=== PATIENT | female | born 1995 | race Hispanic/Latino ===

== ENCOUNTER 2018-08-09 02:56 | Emergency (ER) | payer MEDICAID, OTHER ==
[2018-08-09 03:26] LABS: BASOPHILS % (AUTO) 0.2 % (0.0-5.0); EOSINOPHILS % (AUTO) 0.5 % (0.0-8.0); HEMATOCRIT 43.4 % (36-48); LYMPHOCYTES % (AUTO) 43.4 % (21.0-51.0); MEAN CORPUSCULAR HGB CONC 32.9 g/dL (32.0-36.0); MEAN CORPUSCULAR VOLUME 94.3 fL (80-100); MONOCYTES % (AUTO) 6.6 % (3.0-13.0); NEUTROPHILS % (AUTO) 49.3 % (40.0-77.0); PLATELET COUNT (AUTO) 269 K/uL (130-400); RED BLOOD CELL COUNT(AUTO) 4.61 MIL/uL (4.00-5.50); RED CELL DISTRIBUTION WIDTH 12.3 % (11.0-15.5); WHITE BLOOD COUNT (AUTO) 11.7 K/uL (4.8-10.8)
[2018-08-09 03:28] LABS: APPEARANCE,URINE Clear (CLEAR); BILIRUBIN,URINE Negative (NEGATIVE); COLOR,URINE Yellow (YELLOW); GLUCOSE, URINE (UA) Negative (NEGATIVE); KETONES,URINE Negative (NEGATIVE); LEUKOCYTE ESTERASE ,URINE Trace (NEGATIVE); NITRATE,URINE Negative (NEGATIVE); OCCULT BLOOD,URINE Negative (NEGATIVE); PROTEIN,URINE Negative (NEGATIVE); UROBILINOGEN,URINE 0.2 mg/dL (0.2-1.0)
[2018-08-09 03:30] LABS: HCG,QUAL RESULT NEGATIVE (NEGATIVE)
[2018-08-09 03:37] LABS: AMPHET/METH SCREEN,URINE NEGATIVE (NEGATIVE); BARBITURATE SCREEN, URINE NEGATIVE (NEGATIVE); BENZODIAZEPINES SCREEN,URINE NEGATIVE (NEGATIVE); CANNABINOID SCREEN,URINE POSITIVE (NEGATIVE); COCAINE SCREEN,URINE NEGATIVE (NEGATIVE); CREATININE 0.8 mg/dL (0.5-1.5); OPIATE SCREEN,URINE NEGATIVE (NEGATIVE); PHENCYCLIDINE SCREEN,URINE NEGATIVE (NEGATIVE); POTASSIUM 3.9 mmol/L (3.5-5.1)
[2018-08-09 03:43] LABS: ALBUMIN 3.7 g/dL (3.5-5.0); BILIRUBIN,TOTAL 0.2 mg/dL (0.2-1.0); TOTAL PROTEIN, SERUM 7.8 g/dL (6.0-8.3)
[2018-08-09 03:53] LABS: BACTERIA,URINE Rare /HPF (None Seen); RBC,URINE 0-1 /HPF (0-1); WBC,URINE 0-1 /HPF (0-1)
== END 2018-08-09 06:25 | disposition home or self-care (01) ==
LOC: EDH 02:56
DX: F12.10 Cannabis abuse, uncomplicated (principal); R53.1 Weakness
CPT/HCPCS: 36415; 71045; 80053; 80305; 81001; 81025; 82550; 83690; 84484; 85025; 93005

== ENCOUNTER 2019-10-08 09:28 | Emergency (ER) | payer OTHER ==
[2019-10-08] MEDS ORDERED: MECLIZINE HCL 25 MG TABLET ONE (09:53)
== END 2019-10-08 11:10 | disposition home or self-care (01) ==
LOC: EDH 09:28
DX: H81.10 Benign paroxysmal vertigo, unspecified ear (principal); Z72.0 Tobacco use
CPT/HCPCS: 99282

== ENCOUNTER 2019-12-22 01:56 | Emergency (ER) | payer OTHER ==
[2019-12-22 02:56] LABS: BASOPHILS % (AUTO) 0.2 % (0.0-5.0); EOSINOPHILS % (AUTO) 0.3 % (0.0-8.0); HEMATOCRIT 42.8 % (36-48); LYMPHOCYTES % (AUTO) 26.1 % (21.0-51.0); MEAN CORPUSCULAR HEMOGLOBIN 31.8 pg (27.0-33.0); MEAN CORPUSCULAR HGB CONC 32.7 g/dL (32.0-36.0); MEAN CORPUSCULAR VOLUME 97.3 fL (79-99); MONOCYTES % (AUTO) 7.1 % (3.0-13.0); NEUTROPHILS % (AUTO) 66.1 % (40.0-77.0); PLATELET COUNT (AUTO) 219 K/uL (130-400); RED CELL DISTRIBUTION WIDTH 11.3 % (11.0-15.5); WHITE BLOOD COUNT (AUTO) 9.4 K/uL (4.8-10.8)
[2019-12-22 03:03] LABS: CREATININE 0.6 mg/dL (0.5-1.5); POTASSIUM 4.1 mmol/L (3.5-5.1)
[2019-12-22 03:07] LABS: ALBUMIN 3.5 g/dL (3.5-5.0); BILIRUBIN,TOTAL 0.5 mg/dL (0.2-1.0); TOTAL PROTEIN, SERUM 7.5 g/dL (6.0-8.3)
[2019-12-22 03:10] LABS: APPEARANCE,URINE Clear (CLEAR); BILIRUBIN,URINE Negative (NEGATIVE); COLOR,URINE Yellow (YELLOW); GLUCOSE, URINE (UA) Negative (NEGATIVE); KETONES,URINE Negative (NEGATIVE); LEUKOCYTE ESTERASE ,URINE Negative (NEGATIVE); NITRATE,URINE Negative (NEGATIVE); OCCULT BLOOD,URINE Negative (NEGATIVE); PH,URINE 5.5 (5.0-8.0); PROTEIN,URINE Negative (NEGATIVE); UROBILINOGEN,URINE 0.2 mg/dL (0.2-1.0)
[2019-12-22 03:17] LABS: AMPHET/METH SCREEN,URINE NEGATIVE (NEGATIVE); BARBITURATE SCREEN, URINE NEGATIVE (NEGATIVE); BENZODIAZEPINES SCREEN,URINE NEGATIVE (NEGATIVE); CANNABINOID SCREEN,URINE POSITIVE (NEGATIVE); COCAINE SCREEN,URINE NEGATIVE (NEGATIVE); OPIATE SCREEN,URINE NEGATIVE (NEGATIVE); PHENCYCLIDINE SCREEN,URINE NEGATIVE (NEGATIVE)
[2019-12-22 03:20] LABS: HCG,QUAL RESULT NEGATIVE (NEGATIVE)
== END 2019-12-22 04:12 | disposition home or self-care (01) ==
LOC: EDH 01:56
DX: F41.1 Generalized anxiety disorder (principal); R00.2 Palpitations; R06.02 Shortness of breath
CPT/HCPCS: 36415; 80053; 80305; 81003; 81025; 84484; 85025; 93005

== ENCOUNTER 2020-01-06 10:14 | Emergency (ER) | payer OTHER | END 2020-01-06 10:51 | disposition home or self-care (01) | LOC: EDH 10:14 | DX: F41.1 Generalized anxiety disorder (principal); Z87.891 Personal history of nicotine dependence | CPT/HCPCS: 99281 ==

== ENCOUNTER 2021-12-04 19:46 | Emergency (ER) | payer OTHER ==
[~2021-12-04] VITALS: Ht 160 cm; Wt 86.2 kg
[2021-12-04 20:33] LABS: BASOPHILS % (AUTO) 0.2 % (0.0-5.0); EOSINOPHILS % (AUTO) 0.5 % (0.0-8.0); HEMATOCRIT 37.1 % (36-48); LYMPHOCYTES % (AUTO) 30.8 % (21.0-51.0); MEAN CORPUSCULAR HEMOGLOBIN 31.2 pg (27.0-33.0); MEAN CORPUSCULAR HGB CONC 33.4 g/dL (32.0-36.0); MEAN CORPUSCULAR VOLUME 93.2 fL (79-99); MONOCYTES % (AUTO) 7.2 % (3.0-13.0); PLATELET COUNT (AUTO) 264 K/uL (130-400); RED BLOOD CELL COUNT(AUTO) 3.98 MIL/uL (4.00-5.50); RED CELL DISTRIBUTION WIDTH 11.4 % (11.0-15.5); WHITE BLOOD COUNT (AUTO) 11.5 K/uL (4.8-10.8)
[2021-12-04 21:57] LABS: APPEARANCE,URINE Clear (CLEAR); BILIRUBIN,URINE Negative (NEGATIVE); COLOR,URINE Yellow (YELLOW); GLUCOSE, URINE (UA) Negative (NEGATIVE); KETONES,URINE Negative (NEGATIVE); LEUKOCYTE ESTERASE ,URINE Moderate (NEGATIVE); NITRATE,URINE Negative (NEGATIVE); OCCULT BLOOD,URINE Negative (NEGATIVE); PROTEIN,URINE Negative (NEGATIVE)
[2021-12-04 22:08] LABS: BACTERIA,URINE Few /HPF (None Seen); RBC,URINE 0-1 /HPF (0-1); SQUAMOUS EPITHELIAL CELL,UR Few /HPF (0-2)
[2021-12-04 22:09] LABS: MUCUS,URINE Rare LPF (None Seen)
[2021-12-04] MEDS ORDERED: CEPH500B PO (22:58)
[2021-12-04] MEDS ORDERED: PREN-154 PO (22:58)
[2021-12-04] MEDS ORDERED: CEPHALEXIN 500 MG CAPSULE PO ONE (23:00)
[2021-12-04 23:15] VITALS: BP 136/87
== END 2021-12-04 23:16 | disposition home or self-care (01) ==
LOC: EDH 19:46
DX: O20.0 Threatened abortion (principal); O23.41 Unspecified infection of urinary tract in pregnancy, first trimester; Z3A.01 Less than 8 weeks gestation of pregnancy
CPT/HCPCS: 36415; 81001; 84702; 84703; 85025; 86850; 86900; 86901; 87088

== ENCOUNTER 2024-08-16 13:46 | Emergency (ER) | payer MEDICAID ==
[~2024-08-16] VITALS: Ht 160 cm; Wt 95.3 kg
[~2024-08-16 13:46] MED LIST: CEPH500B PO; PREN-154 PO
[2024-08-16 15:14] VITALS: BP 120/85; PULSE 95; RESP 16; TEMP 99.1; O2SAT 98
[2024-08-16] MEDS ORDERED: CLIN-141 PO (15:31)
[2024-08-16] MEDS ORDERED: IBUP-2070 PO (15:31)
== END 2024-08-16 16:08 | disposition home or self-care (01) ==
LOC: EDH 13:46
DX: K08.89 Other specified disorders of teeth and supporting structures (principal); R51.9 Headache, unspecified

== ENCOUNTER 2024-10-31 17:32 | Emergency (ER) | payer MEDICAID ==
[~2024-10-31] VITALS: Ht 162.6 cm; Wt 97.5 kg
[~2024-10-31 17:32] MED LIST changes: +CLIN-141 PO; +IBUP-2070 PO
[2024-10-31 17:57] LABS: APPEARANCE,URINE CLEAR (CLEAR); BILIRUBIN,URINE NEGATIVE (NEGATIVE); COLOR,URINE LIGHT-YELLOW (YELLOW); GLUCOSE, URINE (UA) NEGATIVE (NEGATIVE); KETONES,URINE NEGATIVE (NEGATIVE); LEUKOCYTE ESTERASE ,URINE 75 Leu/uL (NEGATIVE); NITRATE,URINE NEGATIVE (NEGATIVE); OCCULT BLOOD,URINE NEGATIVE (NEGATIVE); PROTEIN,URINE NEGATIVE (NEGATIVE); UROBILINOGEN,URINE 0.2 mg/dL (0.2-1.0)
--- NOTE | 2024-10-31 17:57 | ERN ---
General Chief Complaint: Low Back Pain/Injury Stated Complaint: LOWER BACK PAIN Time Seen by MD: 17:34 Time Seen by Midlevel: 17:34 Source: patient History of Present Illness Initial Comments Patient is a 29-year-old female with no significant past medical history presents to the emergency department with multiple complaints. Her primary concern is that she was having low back pain has been ongoing for the last week. She denies any direct injury to her back. Denies lifting anything heavy. She states the pain is worse with certain movements. Denies any dysuria, hematuria, fever, chills, nausea, vomiting, or any other symptoms at this time. The 2nd complaint she was coming in with is a sore throat that has been ongoing for the last month. She states she works at a [employer] center and is constantly speaking so she believes that might be the reason for the itchiness in the back of her throat. Denies taking any medications. Denies seeing a primary care doctor for this issue. Denies any past medical/surgical history. Allergies: Coded Allergies: No Known Drug Allergies (Unverified Allergy, Unknown, 03/06/15) Home Meds Active Scripts Clindamycin HCl (Clindamycin HCl) 300 Mg Capsule, 300 MG PO TID for 7 Days, #21 CAP Prov:SHI VALLECILLO MD 08/16/24 Ibuprofen (Ibuprofen) 600 Mg Tablet, 600 MG PO Q8HPRN PRN for PAIN for 3 Days, #10 TAB Prov:SHI VALLECILLO MD 08/16/24 Vits #93/Iron Fum/FA ( Formula Tablet) 1 Each Tablet, 1 EACH PO DAILYBKFST for 30 Days, #30 TAB Prov:FREDY GLASS NP 12/04/21 Cephalexin Monohydrate (Keflex) 500 Mg Cap, 500 MG PO TID for 10 Days, #30 CAP Prov:FREDY GLASS CLAM TREADER 12/04/21 Past Medical History Past Medical History: No Pertinent History Past Surgical History: Surgical History Other: C section , D and C Female( History) LMP: Sep 27, 2024 ROS Dictation CONSTITUTIONAL: Negative except for HPI HEAD/FACE: Negative except for HPI EENT: Negative except for HPI RESPIRATORY: Negative except for HPI GASTROINTESTINAL/ABDOMINAL: Negative except for HPI GENITOURINARY: Negative except for HPI MUSCULOSKELETAL: Negative except for HPI INTEGUMENTARY: Negative except for HPI NEUROLOGICAL/PSYCH: Negative except for HPI HEMATOLOGIC/LYMPHATIC: Negative except for HPI All Systems Negative, Except as noted above. 13 point review of systems assessed and all negative except for above. Physical Exam Physical Exam Dictation Vital Signs reviewed General Appearance: Alert, oriented x 3, no acute distress, well developed, nourished. Head and Face: non-traumatic. Eyes: PERRL, pink conjunctivas, eyelid no trauma, anterior chamber with arcus senilis. Ears: Pinnas intact and no signs of trauma or erythema ear canals clear and no discharge TM no erythema Nose: No discharge, no bleeding. Oropharynx: Mouth normal, tongue pink, pharynx clear,no erythema, tonsils no exudates, no abscesses noted, mucous membrane moist Neck: Supple, non-tender, no thyromegaly, no masses, no JVD, no bruits Breast:Deferred Chest:No tenderness, no crepitus, no paradoxical movement, no retractions Lungs:Clear, well-ventilated, symmetric, no rales, no wheezing, no rhonchi, no stridor, good breath sounds bilaterally Heart: Regular rate, regular rhythm, no murmur, no gallops Vascular: no peripheral edema, Abdomen: Soft, positive bowel sounds, nondistended, no guarding, nontender, no rebound, no masses no hepatomegaly, no splenomegaly, no Beard's sign, no hernias. Rectal: Deferred Genital: Deferred Neurological: Normal speech, motor function intact, sensory function intact Musculoskeletal: Neck nontender, full range of motion, back nontender, full rang e of motion, Extremities: nontender, full range of motion Skin: Color pink, dry, no turgor, no rash, no lacerations, no abrasions, no contusions. Lymphatic: Deferred Results Laboratory and Microbiology Lab and Micro Result Laboratory Tests Test 10/31/24 17:40 Urine Color LIGHT-YELLOW (YELLOW) Urine Appearance CLEAR (CLEAR) Urine pH 6.0 (5.0-8.0) Urine Specific Patterson 1.025 (1.001-1.031) Urine Protein NEGATIVE mg/dL (NEGATIVE) Urine Glucose (UA) NEGATIVE mg/dL (NEGATIVE) Urine Ketones NEGATIVE mg/dL (NEGATIVE) Urine Occult Blood NEGATIVE (NEGATIVE) Urine Nitrate NEGATIVE (NEGATIVE) Urine Bilirubin NEGATIVE mg/dL (NEGATIVE) Urine Urobilinogen 0.2 mg/dL (0.2-1.0) Urine Leukocyte Esterase 75 Gil/uL (NEGATIVE) H Urine RBC 0-1 /HPF (0-1) Urine WBC 0-1 /HPF (0-1) Urine Squamous Epithelial Cells RARE /HPF (0-2) Urine Bacteria None /HPF (None Seen) Urine HCG, Qualitative NEGATIVE (NEGATIVE) SARS-CoV-2, RNA, NAAT NEGATIVE SARS CoV-2 Labs Reviewed?: Yes MDM MDM: Patient is a 29-year-old female with no significant past medical history presents to the emergency department with multiple complaints. Her primary concern is that she was having low back pain has been ongoing for the last week. She denies any direct injury to her back. Denies lifting anything heavy. She states the pain is worse with certain movements. Denies any dysuria, hematuria, fever, chills, nausea, vomiting, or any other symptoms at this time. The 2nd complaint she was coming in with is a sore throat that has been ongoing for the last month. She states she works at a [employer] and is constantly speaking so she believes that might be the reason for the itchiness in the back of her throat. Denies taking any medications. Denies seeing a primary care doctor for this issue. Denies any past medical/surgical history. Physical examination patient has no midline tenderness to her thoracolumbar area. She is ambulatory without assistance with a normal gait. There is some mild paraspinal muscle tenderness to the lumbar region. It appears the pain is musculoskeletal in nature since the pain is reproducible with movements. Initial vital signs are stable. Patient is nontoxic appearing. She is afebrile. Her ENT examination is remarkable for erythema to the posterior oropharynx. Uvula is midline. No signs of peritonsillar abscess. There was no tonsillar exudates. Patient was swabbed for flu a, flu B, COVID, and strep and has tested negative. Her urinalysis has some small amount of leuk esterase which appears to be the start of a urine infection. Patient was given Toradol and Norflex in the emergency department and will be discharged home with a prescription for Flexeril, Toradol, and Macrobid given that this may be the start of a UTI. Patient was advised to follow up with your PCP in 2-3 days for repeat evaluation. Return precautions discussed Differential diagnosis: Low back strain, urinary tract infection, There are no social concerns with this patient. Prescription drug management Prescriptions will include: Toradol and Flexeril Medical management and examination interpretation discussions were had by me with other qualified healthcare professionals as indicated for the patient's care. ED Course Orders Procedure Category Date Status Time Covid Rna Naat LAB 10/31/24 In Process 17:37 Influenza Type A & B, LAB 10/31/24 In Process Rapid 17:37 Rapid (Group A Strep) LAB 10/31/24 In Process 17:37 Urinalysis Profile LAB 10/31/24 Complete 17:37 ,Urine Test LAB 10/31/24 Complete 17:37 Culture Urine DELILAH 10/31/24 Logged 17:59 Orphenadrine Citrate PHA 10/31/24 Logged (Norflex) 18:30 Ketorolac PHA 10/31/24 Logged Tromethamine 30mg/Ml 18:30 Current Medications Medications (Trade) Dose Ordered Sig/Brittny Route PRN Reason Start Time Stop Time Status Last Admin Dose Admin Ketorolac Tromethamine (toRADol) 30 mg ONCE ONCE IM 10/31/24 18:30 10/31/24 18:31 UNV Orphenadrine Citrate (Norflex) 60 mg ONCE ONCE IM 10/31/24 18:30 10/31/24 18:31 UNV Vital Signs Date Time Temp Pulse Resp B/P (MAP) Pulse Ox O2 Delivery O2 Flow Rate FiO2 10/31/24 17:35 99.3 98 18 148/92 0 Room Air 0 DX & DISP Disposition: Discharge Departure Impression: Primary Impression: Low back strain Additional Impression: Cystitis Condition: Stable Scripts Cyclobenzaprine HCl (Flexeril) 10 Mg Tab 10 MG PO BID for muscle sstiffness for 5 Days, #10 TAB 0 Refills Prov: ROWENA OSWALD 10/31/24 Ketorolac Tromethamine (Ketorolac Tromethamine) 10 Mg Tablet 1 TAB PO TID for pain for 5 Days, #15 TAB 0 Refills Prov: ROWENA OSWALD 10/31/24 Nitrofurantoin/Nitrofuran Mac (Macrobid) 100 Mg Cap 1 CAP PO BID for 5 Days, #10 CAP 0 Refills Prov: ROWENA OSWALD 10/31/24 Additional Instructions: Your urinalysis shows what appears to be the start of a urine infection. I do not believe this is what is causing your low back pain. Your low back pain appears to be musculoskeletal in nature. I will start you on antibiotics for a presumed bladder infection. I will also send him home with a prescription for Toradol and Flexeril which should help with your low back pain. You have tested negative for COVID-19, influenza a, influenza B, and strep pharyngitis. You will need to follow up with your primary care doctor in 2-3 days for repeat evaluation. If you develop any new or worsening symptoms please report to the ER for further evaluation. Referrals: ANABELA OSWALD MD (PCP) Time of Disposition: 18:17 I have reviewed the case, and I agree with, Diagnosis and Plan I performed the substantive portion of the visit. I have reviewed and personally made and approve the management plan that is documented in the note by myself or the SONIYA. I acknowledge for responsibility for the patient's management plan. ROWENA OSWALD Oct 31, 2024 17:57
[2024-10-31 17:59] LABS: ADD UA MICROSCOPIC YES
[2024-10-31 18:01] LABS: MUCUS,URINE RARE LPF (None Seen); RBC,URINE 0-1 /HPF (0-1); SQUAMOUS EPITHELIAL CELL,UR RARE /HPF (0-2); WBC,URINE 0-1 /HPF (0-1)
[2024-10-31 18:07] LABS: HCG,QUALITATIVE URINE NEGATIVE (NEGATIVE)
[2024-10-31 18:13] LABS: SARS-CoV-2, RNA, NAAT NEGATIVE SARS CoV-2 (NEGATIVE)
[2024-10-31 18:17] LABS: RAPID GROUP A STREP negative (NEGATIVE)
[2024-10-31] MEDS ORDERED: MACR100 PO (18:21)
[2024-10-31] MEDS ORDERED: CYCL10TA16 PO (18:21)
[2024-10-31] MEDS ORDERED: KETO10TA2 PO (18:21)
[2024-10-31 18:27] LABS: INFLUENZA TYPE A Negative For Type A (NEGATIVE); INFLUENZA TYPE B Negative For Type B (NEGATIVE)
[2024-10-31 18:48] VITALS: BP 141/83; PULSE 95; RESP 18; TEMP 98.9; O2SAT 100
[2024-10-31] MEDS: ORPHENADRINE 60MG/2ML IM ONE (18:51)
[2024-10-31] MEDS: ketOROlac 30MG VIAL (30MG/ML) IM ONE (18:51)
== END 2024-10-31 19:02 | disposition home or self-care (01) ==
LOC: EDH 17:32
DX: S39.012A Strain of muscle, fascia and tendon of lower back, initial encounter (principal); N30.90 Cystitis, unspecified without hematuria; Z20.822 Contact with and (suspected) exposure to COVID-19; Z79.899 Other long term (current) drug therapy; Z98.890 Other specified postprocedural states; X58.XXXA Exposure to other specified factors, initial encounter; Y93.89 Activity, other specified; Y92.89 Other specified places as the place of occurrence of the external cause; Y99.8 Other external cause status
CPT/HCPCS: 99284; 87635; 87086; 87880; 87804 ×2; 81001; 81025; 96372 ×2; J1885; J2360